=== PATIENT | male | born 2000 | race Caucasian/White ===

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

== ENCOUNTER 2019-04-08 16:26 | Emergency (ER) | payer MEDICAID, OTHER ==
[~2019-04-08] VITALS: Ht 175.3 cm; Wt 67.2 kg
[2019-04-08 16:28] VITALS: BP 114/67
[2019-04-08] MEDS ORDERED: DEXAMETHASONE 4 MG TABLET ONE (16:46)
[2019-04-08] MEDS ORDERED: DEXAMETHASONE 4 MG TABLET PO ONE (17:00)
== END 2019-04-08 17:12 | disposition home or self-care (01) ==
LOC: ED 17:06
DX: H66.002 Acute suppurative otitis media without spontaneous rupture of ear drum, left ear (principal); B34.9 Viral infection, unspecified
CPT/HCPCS: 99283